=== PATIENT | male | born 1955 | race Caucasian/White ===

== ENCOUNTER 2017-07-09 11:04 | Observation (INO) | payer SELFPAY ==
[2017-07-09] MEDS ORDERED: CLINDAMYCIN 600MG/50ML PREMIX 600 MG/50 ML BAG IVPB ONE (11:43)
[2017-07-09] MEDS ORDERED: HYDROCODONE/APAP 5/325MG TABLET PO ONE (11:44)
--- NOTE | 2017-07-09 11:48 | Emergency Department Record ---
History of Present Illness - General Chief complaint: Facial Swelling Stated complaint: FACIAL SWELLLING/PAIN Time Seen by Provider: 07/09/17 11:27 Source: Patient Mode of Arrival: Ambulatory Limitations: No limitations - History of Present Illness Initial Comments: The patient is here due to facial pain and swelling. He developed pain around his nose 2 days ago and now it is worsening. He also has swelling in between his nares just on the inside of his nose. He does have a mild frontal ESCOBAR but no nausea, fever, neck stiffness or balance issues. The patient is NOT a diabetic and also denies any visual changes. MD Complaint: Other Onset/Timin -: Days(s) Exposure: Unknown Severity: Mild Treatment Prior to Arrival: None Previous Allergy History: None - Related Data Allergies Allergy/AdvReac Type Severity Reaction Status Date / Time No Known Drug Allergies Allergy Unverified 12/06/16 16:10 Travel Screening - Travel/Exposure Within Last 30 Days Have you traveled within the last 30 days?: No Review of Systems Constitutional: Denies: Chills, Fever, Malaise Eyes: Denies: Eye discharge ENT: Denies: Congestion Respiratory: Denies: Cough Past Medical History - SOCIAL HISTORY Smoking Status: Never smoker Alcohol Use: None Drug Use: None - RESPIRATORY Hx Respiratory Disorders: No - CARDIOVASCULAR Hx Cardio Disorders: No - NEURO Hx Neuro Disorders: Yes Hx Headaches: Yes - GI Hx GI Disorders: No - Hx Genitourinary Disorders: No - ENDOCRINE Hx Endocrine Disorders: No - MUSCULOSKELETAL Hx Musculoskeletal Disorders: No - PSYCH Hx Psych Problems: Yes Hx Anxiety: Yes Hx Depression: Yes - HEMATOLOGY/ONCOLOGY Hx Hematology/Oncology Disorders: No Family Medical History Any Significant Family History?: No Physical Exam - General General Appearance: Alert, Oriented x3, Cooperative, No acute distress - Head Head exam: Atraumatic, Normocephalic, Normal inspection - Eye Eye exam: Normal appearance, PERRL, EOMI - ENT ENT exam: Normal orophraynx, TM's normal bilaterally. negative: Normal exam Nasal Exam: Sinus tenderness, Other (There is edema and tenderness and swelling over the distal anterior septal area. There appears to be a probable early abscess present but there is no fluctuance presently.). negative: Normal inspection Throat exam: Normal inspection. negative: Tonsillar erythema, Tonsillar exudate - Neck Neck exam: Normal inspection, Full ROM. negative: Lymphadenopathy, Meningismus , Tenderness - Respiratory Respiratory exam: Normal lung sounds bilaterally. negative: Respiratory distress - Cardiovascular Cardiovascular Exam: Regular rate, Normal rhythm, Normal heart sounds - Extremities Extremities exam: Normal inspection, Full ROM, Normal capillary refill. negative: Tenderness - Neurological Neurological exam: Alert, Normal gait, Oriented X3, Other (Neg Drift and Rhomberg exams.). negative: Abnormal gait, Motor sensory deficit Course Vital Signs 07/09/17 11:13 Temperature 98.7 F Pulse Rate [ 101 H Pulse Ox Probe] Respiratory 13 Rate Blood Pressure 180/100 [Left Arm] Pulse Ox 95 - Reevaluation(s) Reevaluation #1: The patient is doing better after the pain medicines and IV Abx's. Due to the nature of the infection I did recommend hospital admission and the patient did agree. I then did discuss the case with Dr. Mendes and he did accept the admission. 07/09/17 12:46 Medical Decision Making - Data Complexity MDM Data: Labs Ordered and/or Reviewed - Lab Data Result diagrams: 07/09/17 11:50 07/09/17 11:50 Disposition Disposition: Discharge Clinical Impression: Facial cellulitis Disposition: Still a Patient at [facility] Accepting Physician: Cinthya Time Discussed w/Accepting Physician: 12:47 Condition: (2) Stable Forms: Patient Portal Access Time of Disposition: 12:47 Quality - Quality Measures Quality Measures: N/A - Blood Pressure Screening View Details: Yes Does Patient Have Any of the Following: No Blood Pressure Classification: Hypertensive Reading Systolic Measurement: 180 Diastolic Measurement: 100 Screening for High Blood Pressure: < Pre-Hypertensive BP, F/U Documented > [ [id number]] Pre-Hypertensive Follow-up Interventions: Referral to alternative/primary care provider.
[2017-07-09 11:56] LABS: HEMATOCRIT 42.7 % (42.0-52.0); HEMOGLOBIN 14.4 gm/dl (14.0-18.0); MEAN CELL VOLUME 89.3 fl (81-97); MEAN CORPUSCULAR HEMOGLOBIN 30.1 pg (27-33); MEAN CORPUSCULAR HGB CONC 33.7 g/dl (32-36); MEAN PLATELET VOLUME 9.9 fl (7.4-10.4); PLATELET COUNT 257 K/uL (130-400); RED BLOOD COUNT 4.78 M/uL (4.40-5.70); RED CELL DISTRIBUTION WIDTH 13.9 % (11.5-14.5); WHITE BLOOD COUNT W/O DIFF 14.8 K/uL (4.2-12.2)
[2017-07-09 12:08] LABS: PLATELET ESTIMATE NORMAL (NORMAL)
[2017-07-09 12:12] LABS: BLOOD UREA NITROGEN 17 mg/dL (8-23); CREATININE 0.9 mg/dL (0.7-1.2); EST GLOMERULAR FILTRATION RATE > 60 mL/min
[2017-07-09 12:13] LABS: TOTAL PROTEIN 7.4 g/dL (6.6-8.7)
[2017-07-09 12:15] LABS: GLUCOSE,RANDOM 205 mg/dL (74-109)
[2017-07-09 12:17] LABS: ALT/SGPT 16 U/L (<41); AST/SGOT 14 U/L (10.0-50.0)
[2017-07-09 12:18] LABS: ALB/GLOB RATIO 1.1 (1.1-1.8); ALBUMIN 3.9 g/dL (4.0-5.0); ALKALINE PHOSPHATASE 116 U/L (40-129); C-REACTIVE PROTEIN 8.76 mg/dL (<0.5)
[2017-07-09] MEDS: CLINDAMYCIN 600MG/50ML PREMIX 600 MG/50 ML BAG IVPB SCH ×2 (14:52→20:04)
[2017-07-09] MEDS ORDERED: TEMAZEPAM 15 MG CAPSULE PO PRN (14:53)
[2017-07-09] MEDS: HYDROCODONE/APAP 5/325MG TABLET PO PRN (17:45)
[2017-07-09] MEDS: ACETAMINOPHEN 500 MG TABLET PO PRN (20:11)
[2017-07-10] MEDS: HYDROCODONE/APAP 5/325MG TABLET PO PRN ×3 (01:42→09:26)
[2017-07-10] MEDS: CLINDAMYCIN 600MG/50ML PREMIX 600 MG/50 ML BAG IVPB SCH ×2 (04:33→11:57)
--- NOTE | 2017-07-10 07:52 | History and Physical Report ---
DATE OF ADMISSION: 07/09/2017 Attending Physician: Fish Mendes DO Primary caregiver: Ifrah Pederson PA-C CHIEF COMPLAINT: Abscess in the right nostril, which started about 2 days prior. HISTORY OF PRESENT ILLNESS: This 62-year-old male noticed a little pimple in the right nostril, which gradually got worse, he came into the ER for evaluation. He was seen by Dr. Martinez and admitted to the hospital for observation for IV clindamycin. On my examination, the abscess is very tender and at this point, I felt that it would be better if we could open up and drain it. PAST MEDICAL HISTORY: Negative, however, his sugar was high, I think it is because of the infection and pain that he is in from the nostril. He occasionally gets headaches, has anxiety, depression. PAST SURGICAL HISTORY: Appendectomy, knee surgery, and right shoulder surgery. MEDICATIONS ON ADMISSION: 1. Effexor 150 mg b.i.d. 2. Restoril 30 mg at h.s. ALLERGIES: None. FAMILY PSYCHOSOCIAL HISTORY: Negative family history. No smoking, no alcohol, and no drugs. REVIEW OF SYSTEMS: HEENT: No upper respiratory infectious symptoms, cough, cold, or congestion. CARDIOVASCULAR: No chest pain, palpitations, or arrhythmias. RESPIRATORY: No cough, cold, or congestion. GASTROINTESTINAL: No nausea, vomiting, or black stools or bloody stools. GENITOURINARY: No dysuria, hematuria, or frequency or burning on urination. MUSCULOSKELETAL: No joint or bone abnormalities. NEUROLOGIC: No CVA, paralysis, or paresthesias. ENDOCRINE: No diabetes or thyroid disease. INTEGUMENT: See chief complaint. He has a small boil in the right nostril by the septum of the nose. PHYSICAL EXAMINATION: GENERAL: Height is 5 feet 10 inches, weight is 202 pounds. VITAL SIGNS: Temperature 98.7, pulse is 103, blood pressure is 157/97, respiratory rate is 20, pulse OX is 95% on room air. HEENT: Pupils are equal, round, and reactive to light and accomodation. Extraocular muscles intact. Throat is clear. Nose; there is an abscess in the right nostril at the septum of the nose. Tympanic membranes are benitez. NECK: Supple. No jugular venous distention, no hepatojugular reflux, no carotid bruits. Thyroid is smooth. CARDIOVASCULAR: Regular rate and rhythm without murmurs, clicks, rubs, or gallops. RESPIRATORY: Clear to auscultation and percussion. ABDOMEN: Soft and nontender, no hepatosplenomegaly. No mass, no tenderness. Bowel sounds are active. No bruits. EXTREMITIES: No pitting edema, no cyanosis, no clubbing. Full range of motion, peripheral pulses are good. NEUROLOGIC: Cranial nerves 2 through 12 intact. No gross defects. Sensation normal, strength normal, deep tendon reflexes equal bilaterally. Babinski's is negative. MENTAL STATUS: Alert and oriented x 3. IMPRESSION: Right nostril abscess. PLAN: 1. Incision and drainage of the abscess after 1% lidocaine. 2. Clindamycin q.8h. MTDD
[2017-07-10] MEDS: ACETAMINOPHEN 500 MG TABLET PO PRN (08:15)
[2017-07-10] MEDS ORDERED: VENLAFAXINE ER 75 MG CAPSULE PO SCH (10:00)
--- NOTE | 2017-07-10 12:53 | Discharge Note ---
VTE H&P Assessment - Risk for VTE Risk for VTE: No Risk Level: Very Low Risk Assessment Date: 07/09/17 Risk Assessment Time: 19:00 VTE Orders Placed or Will Be Placed: No VTE Reason for No Prophylaxis: Not Indicated Discharge Medications - Discharge Medications Prescriptions: Cephalexin [Keflex] 500 mg PO QID #40 cap Clindamycin HCl 300 mg PO TID #30 capsule Hydrocodone/Acetaminophen [[place] 5mg/325mg] 1 tab PO Q6H PRN #14 tab PRN Reason: Pain - General Mupirocin [Bactroban] 1 apply TP TID #22 gm Home Medications: Ambulatory Orders Acetaminophen [Tylenol 500Mg Tab] 500 mg PO Q6H PRN tablet 07/10/17 [Last Taken Unknown] Cephalexin [Keflex] 500 mg PO QID #40 cap 07/10/17 [Last Taken Unknown] Clindamycin HCl 300 mg PO TID #30 capsule 07/10/17 [Last Taken Unknown] Hydrocodone/Acetaminophen [[place] 5mg/325mg] 1 tab PO Q6H PRN #14 tab 07/10/17 [ Last Taken Unknown] Mupirocin [Bactroban] 1 apply TP TID #22 gm 07/10/17 [Last Taken Unknown] Discharge Note - Date Date of Discharge Note: 07/10/17 Condition: (2) Stable Instructions: Clindamycin (By mouth), Cellulitis (DC) Additional Instructions: follow up with dorita in 3 to 7 days warm compresses three times a day bactroban ointment three times a day keflex 500 mg four times a day clindamycin 300 mg three times a day tylenol or motrin for pain and if has severe pain use norco as little as possible( no driving if you take norco for 12 hours) return to ED if worse Referrals: DORITA CARRERA PA [Primary Care Provider] - Forms: Patient Portal Access Activity at Discharge: Increase Activity as Tolerated
--- NOTE | 2017-07-11 09:40 | Discharge Summary ---
DATE: 07/10/2017 DISCHARGE DIAGNOSIS: Abscess of the right nostril. ATTENDING PHYSICIAN: Fish Mendes DO REASON FOR HOSPITALIZATION: Abscess in the right nostril which started 2 days prior. This 62-year-old male presented to the emergency department. He states that he noticed a pimple in the right nostril. It got worse. He came in. He saw Dr. Martinez, admitted to the hospital for IV clindamycin. SIGNIFICANT FINDINGS: WBC 14,800, hemoglobin 14.4. Chemistries were normal. Sugar was a little bit elevated. This will have to be checked down the road. I think it is more from pain and infection that his sugar is up. His C-reactive protein is 8.76. THERAPY PROVIDED: The patient was given IV clindamycin 600 mg t.i.d. PROCEDURE: After I evaluated the patient, the abscess looked fluctuant, so I went ahead and got permission from the patient to I&D the abscess. The procedure was incision and drainage of the abcess with 1% lidocaine to numb it up. I made the incision with an 11 blade. Drained some purulent material out. Cultures were obtained. The patient tolerated the procedure well. HOSPITAL COURSE: The patient is improved on the next day at my rounding. He says he felt much better. He would like to try outpatient therapy. We will send him home on clindamycin 300 mg 3 times a day for 10 days, Keflex 500 mg q.i.d. for 10 days, Bactroban ointment t.i.d. in the nose gently, and warm compresses 3 times a day. He is to follow up with Ifrah Pederson in 3-7 days. He is to use Tylenol or Motrin for the pain. If the pain is very severe, [place] 5 mg every 6 hours, 14 pills are being prescribed. MTDD
== END 2017-07-10 14:00 | disposition home or self-care (01) ==
LOC: ER 11:04 → MEDSURG 14:12
PROVIDERS: ADMIT Emergency Medicine; ATTEND Emergency Medicine
DX: J34.0 Abscess, furuncle and carbuncle of nose (principal)
CPT/HCPCS: 10060; 99285 ×2; 96365; 96366; 86140; 87070; 80053; 85027; G0378 ×2; 99217; 99220